=== PATIENT | female | born 1970 | race Caucasian/White ===

== ENCOUNTER 2016-07-11 01:10 | Emergency (ER) | payer OTHER ==
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
[2016-07-11] MEDS ORDERED: ONDANSETRON ODT 4 MG TAB (6 TAB/DSPK) PO PRN (04:46)
[2016-07-11 05:03] VITALS: BP 128/84
--- NOTE | 2016-07-11 16:03 | EKG REPORT ---
SEVERITY:- NORMAL ECG - SINUS RHYTHM : Confirmed by: Wendy Isabel 11-Jul-2016 16:02:56
== END 2016-07-11 05:03 | disposition home or self-care (01) ==
LOC: ER 01:10
DX: J20.9 Acute bronchitis, unspecified (principal); R05 Cough; R11.0 Nausea; R09.81 Nasal congestion; R07.9 Chest pain, unspecified; M54.9 Dorsalgia, unspecified; R51 Headache; R19.7 Diarrhea, unspecified; Z79.899 Other long term (current) drug therapy; F17.210 Nicotine dependence, cigarettes, uncomplicated
CPT/HCPCS: 71020; 93005; 93010; 99283

== ENCOUNTER 2017-08-06 20:12 | Emergency (ER) | payer OTHER ==
[2017-08-06 22:59] LABS: A TYPE INFLUENZA AG POSITIVE (NEGATIVE); B INFLUENZA AG NEGATIVE (NEGATIVE)
[2017-08-06] MEDS ORDERED: ACETAMINOPHEN 325 MG TABLET PO ONE (23:32)
[2017-08-06] MEDS ORDERED: IBUPROFEN 600 MG TABLET PO ONE (23:32)
[2017-08-06] MEDS ORDERED: BENZONATATE 100 MG CAPSULE PO ONE (23:32)
[2017-08-06] MEDS ORDERED: DEXAMETHASONE 4 MG TABLET PO ONE (23:32)
[2017-08-06] MEDS ORDERED: ONDANSETRON ODT 4 MG TAB (6 TAB/ER DISP) PO PRN (23:33)
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
[2017-08-07 00:23] VITALS: BP 132/80
== END 2017-08-07 00:20 | disposition home or self-care (01) ==
LOC: ER 20:12
DX: J11.1 Influenza due to unidentified influenza virus with other respiratory manifestations (principal); R11.0 Nausea; R19.7 Diarrhea, unspecified; Z88.6 Allergy status to analgesic agent; Z88.0 Allergy status to penicillin; F17.200 Nicotine dependence, unspecified, uncomplicated
CPT/HCPCS: 87804; 99283

== ENCOUNTER 2018-05-07 10:47 | Emergency (ER) | payer OTHER ==
[2018-05-07] MEDS ORDERED: KETOROLAC TROMETHAMINE INJ/PF 30 MG/1 ML SDV IV ONE (11:45)
[2018-05-07] MEDS ORDERED: ONDANSETRON HCL INJ/PF 4 MG/2 ML SDV IV ONE (11:45)
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
[2018-05-07 12:13] LABS: ABSOLUTE EOSINOPHILS # (AUTO) 0.2 10^3/uL (0.0-0.6); ABSOLUTE LYMPHOCYTES (AUTO) 3.2 10^3/uL (0.5-4.7); ABSOLUTE MONOCYTES (AUTO) 0.6 10^3/uL (0.1-1.4); ABSOLUTE NEUT (AUTO) 5.2 10^3/uL (1.7-8.2); BASOPHILS % (AUTO) 0.5 % (0-2); EOSINOPHILS % (AUTO) 2.5 % (0-6); HEMATOCRIT 44.3 % (36.0-47.0); LYMPHOCYTES % (AUTO) 34.7 % (13-45); MEAN CORPUSCULAR HEMOGLOBIN 34.5 pg (27.0-33.4); MEAN CORPUSCULAR HGB CONC 33.8 g/dL (32.0-36.0); MEAN CORPUSCULAR VOLUME 102 fl (80-97); MONOCYTES % (AUTO) 6.4 % (3-13); PLATELET COUNT 341 10^3/uL (150-450); RED BLOOD COUNT 4.34 10^6/uL (3.72-5.28); RED CELL DISTRIBUTION WIDTH 12.5 % (11.5-14.0); SEGMENTED NEUTROPHILS % (AUTO) 55.9 % (42-78); TOTAL CELLS COUNTED % (AUTO) 100 %; WHITE BLOOD COUNT 9.2 10^3/uL (4.0-10.5)
[2018-05-07 12:20] LABS: APPEARANCE,URINE CLEAR; BILIRUBIN,URINE NEGATIVE (NEGATIVE); COLOR,URINE STRAW; GLUCOSE, URINE NEGATIVE (NEGATIVE); KETONES,URINE NEGATIVE (NEGATIVE); LEUKOCYTE ESTERASE,URINE NEGATIVE (NEGATIVE); NITRITE,URINE NEGATIVE (NEGATIVE); PROTEIN,URINE NEGATIVE (NEGATIVE); URINE SPECIFIC GRAVITY 1.009; UROBILINOGEN,URINE NEGATIVE mg/dL (<2.0)
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
[2018-05-07 14:18] LABS: ALANINE AMINOTRANSFERASE 19 U/L (9-52); ALBUMIN 4.2 g/dL (3.5-5.0); ALKALINE PHOSPHATASE 77 U/L (38-126); ANION GAP 10 (5-19); ASPARTATE AMINO TRANSFERASE 17 U/L (14-36); BILIRUBIN,DIRECT 0.2 mg/dL (0.0-0.4); BILIRUBIN,TOTAL 0.9 mg/dL (0.2-1.3); BLOOD UREA NITROGEN 8 mg/dL (7-20); CALCIUM 9.8 mg/dL (8.4-10.2); CARBON DIOXIDE 25 mmol/L (22-30); CHLORIDE 106 mmol/L (98-107); GLUCOSE 92 mg/dL (75-110); LIPASE 50.9 U/L (23-300); TOTAL PROTEIN 6.8 g/dL (6.3-8.2)
[2018-05-07 15:01] VITALS: BP 126/72
== END 2018-05-07 15:00 | disposition left against medical advice (07) ==
LOC: ER 10:47
DX: R10.32 Left lower quadrant pain (principal); R11.0 Nausea; R20.2 Paresthesia of skin; R68.83 Chills (without fever); F17.200 Nicotine dependence, unspecified, uncomplicated; Z88.6 Allergy status to analgesic agent; Z88.8 Allergy status to other drugs, medicaments and biological substances; Z88.5 Allergy status to narcotic agent; Z88.0 Allergy status to penicillin; Z53.29 Procedure and treatment not carried out because of patient's decision for other reasons
CPT/HCPCS: 99284; 96374; 36415; 84702; 83690; 85025; 80053; 81001; J2405

== ENCOUNTER 2019-01-21 14:44 | Emergency (ER) | payer MEDICAID, OTHER ==
[2019-01-21] MEDS ORDERED: KETOROLAC TROMETHAMINE 60 MG/2 ML SDV IM ONE ×2 (15:15→16:42)
[2019-01-21] MEDS ORDERED: METHOCARBAMOL 500 MG TABLET PO ONE (15:15)
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
[2019-01-21] MEDS ORDERED: HYDROCODONE/ACETAMINOPHEN 5-325 MG TABLET PO ONE (16:42)
--- NOTE | 2019-01-21 16:43 | RADIOLOGY REPORT (SQ) ---
EXAM DESCRIPTION: L SPINE WHOLE COMPLETED DATE/TIME: 01/21/2019 4:31 pm REASON FOR STUDY: lower back pain, fell on buttocks COMPARISON: None. NUMBER OF VIEWS: Five views including obliques. TECHNIQUE: AP, lateral, oblique, and sacral radiographic images acquired of the lumbar spine. LIMITATIONS: None. FINDINGS: MINERALIZATION: Normal. SEGMENTATION: Normal. No transitional anatomy. ALIGNMENT: Normal. VERTEBRAE: Maintained height. No fracture or worrisome bone lesion. DISCS: Preserved height. No significant osteophytes or end plate irregularity. POSTERIOR ELEMENTS: Pedicles and facets are intact. No pars defect or posterior arch defects. Bilat eral facet arthropathy at L4-5 and L5-S1. HARDWARE: None in the spine. PARASPINAL SOFT TISSUES: Normal. PELVIS: Intact as visualized. No fractures or worrisome bone lesions. SI joints intact. OTHER: No other significant finding. IMPRESSION: Bilateral facet arthropathy at L4-5 and L5-S1 TECHNICAL DOCUMENTATION: JOB ID: [id number] [employer]- All Rights Reserved Reading location - IP/workstation name: [email or web address]
[2019-01-21] MEDS ORDERED: HYDROCODONE/ACETAMINOPHEN 5-325 MG (6 TAB/ER DISP) PO PRN (16:50)
[2019-01-21] MEDS ORDERED: ONDANSETRON 4 MG TAB.RAPDIS PO ONE (17:04)
[2019-01-21 17:24] VITALS: BP 138/77
== END 2019-01-21 18:10 | disposition home or self-care (01) ==
LOC: ER 14:44
DX: S39.012A Strain of muscle, fascia and tendon of lower back, initial encounter (principal); X58.XXXA Exposure to other specified factors, initial encounter; Z88.6 Allergy status to analgesic agent; Z88.0 Allergy status to penicillin
CPT/HCPCS: 99283; 96372; 72110; J1885; S0119; J3490

== ENCOUNTER 2020-06-28 20:49 | Emergency (ER) | payer SELFPAY ==
[2020-06-28] MEDS ORDERED: METOCLOPRAMIDE HCL ORAL SOLN 10 MG/10 ML UDCUP PO ONE (21:31)
[2020-06-28] MEDS ORDERED: LIDOCAINE 2% VISCOUS SOLN 15 ML UDCUP PO ONE (21:32)
[2020-06-28] MEDS ORDERED: MAG HYDROX/AL HYDROX/SIMETH SUSP 30 ML UDCUP PO ONE (21:32)
[2020-06-28] MEDS ORDERED: GLUCAGON,HUMAN RECOMB 1 MG INJ IV ONE (21:33)
[2020-06-28] MEDS ORDERED: DICYCLOMINE HCL INJ 20 MG/2 ML AMPULE IM ONE (21:34)
[2020-06-28] MEDS ORDERED: NORMAL SALINE 1000 ML 1,000 ML IV ONE (21:34)
--- NOTE | 2020-06-28 21:40 | ER Document Report ---
ED General - General Chief Complaint: Sore Throat Stated Complaint: ESOPHAGUS PAIN Time Seen by Provider: 06/28/20 21:24 Primary Care Provider: CIELO MACDONALD MD [ACTIVE STAFF] - Follow up as needed Mode of Arrival: Medic Information source: Patient Notes: 50-year-old female patient presented to the emergency department concern for epigastric pain. Patient reports pain started after she tried to swallow a piece of steak and she believes the steak is lodged in her esophagus. She states she has been able to swallow liquids since the time of the steak ingestion. She reports severe pain. She denies any history of similar episodes in the past. She also reports she has been having nausea for the last 1 to 2 days with several episodes of vomiting. Today she reports she had a few episodes of blood in her vomit, this was after the steak incident. TRAVEL OUTSIDE OF THE [place] IN LAST 30 DAYS: No - Related Data Allergies/Adverse Reactions: acetaminophen [From Percocet] Allergy (Verified 05/07/18 11:04) bupropion HCl [From Wellbutrin] Allergy (Verified 05/07/18 11:04) oxycodone [From Percocet] Allergy (Verified 05/07/18 11:04) Penicillins Allergy (Verified 05/07/18 11:04) Past Medical History - General Information source: Patient - Social History Smoking Status: Unknown if Ever Smoked Family History: Reviewed & Not Pertinent Renal/ Medical History: Denies: Hx Peritoneal Dialysis Musculoskeletal Medical History: Reports Hx Musculoskeletal Deformity, Reports Hx Musculoskeletal Trauma Psychiatric Medical History: Reports: Hx Anxiety, Hx Depression Past Surgical History: Reports: Hx Breast Surgery, Hx Gynecologic Surgery - leap, Hx Nose Surgery - Immunizations Hx Diphtheria, Pertussis, Tetanus Vaccination: Yes Review of Systems - Review of Systems Gastrointestinal: Abdominal pain, Nausea, Vomiting Physical Exam - Vital signs Vitals: Resp Pulse Ox 17 100 06/28/20 20:59 06/28/20 20:59 - Notes Notes: PHYSICAL EXAMINATION: GENERAL: Well-appearing, well-nourished and in moderate distress, rocking back and forth in the bed, intermittently dry heaving. HEAD: Atraumatic, normocephalic. EYES: Pupils equal round and reactive to light, extraocular movements intact, conjunctiva are normal. ENT: Nares patent, oropharynx clear without exudates. Moist mucous membranes. NECK: Normal range of motion, supple without lymphadenopathy LUNGS: Breath sounds clear to auscultation bilaterally and equal. No wheezes rales or rhonchi. HEART: Regular rate and rhythm without murmurs ABDOMEN: Soft, nondistended abdomen. Epigastric tenderness. No guarding, no rebound. No masses appreciated. Female : deferred Musculoskeletal: Normal range of motion, no pitting or edema. No cyanosis. NEUROLOGICAL: Cranial nerves grossly intact. Normal speech Normal sensory, motor exams PSYCH: Anxious, agitated. SKIN: Warm, Dry, normal turgor, no rashes or lesions noted. Course - Re-evaluation Re-evalutation: Patient has an elevated white count of 18,000, this is likely secondary to persistent vomiting as she does not have any fever, chills or any obvious source of infection. Unfortunately patient's care has been delayed today secondary to her lack of cooperation. A urine sample was sent down to the lab, the nurse informed me that the urine was cold and appeared to be very dilute. The lab confirmed this stating that is not able to be run as they do not believe it is urine. The patient has not had any further episodes of vomiting after receiving Haldol. She is resting peacefully. She does not appear to be in any acute distress. She has tolerated oral intake since her possible ingestion of steak. My plan at this point is to reevaluate the patient once the Haldol wears off. She does not appear to be in any acute distress. She can likely be discharged after she wakes up. I believe that she has some type of secondary gain with today's visit, she had a lot of specific questions on what type of medications we would be giving her, specifically asking for Dilaudid or Percocet for her pain. Upon review of her records she was prescribed Suboxone as recently as April, when she was questioned about this she states "that was to get me off of my pills" she then reports that she was taking hydrocodone. I do not believe the patient has any acute esophageal foreign body. Patient slept for approximately 6 hours with no vomiting. Immediately when we woke her up this morning she started grabbing her stomach stating that she was having pain. When I explained to patient that she has been sleeping comfortably all night without any vomiting without any pain she agreed to be discharged home with outpatient follow-up with gastroenterology. Strict ED return precautions were discussed. The patient's emergency department workup and current diagnosis were explained to the patient and or family. Follow-up instructions were provided. Medications if prescribed were discussed. Instructions for when to return to the emergency department including specific worrisome symptoms were discussed with the patient and/or family. - Vital Signs Vital signs: Temp Pulse Resp BP Pulse Ox 14 131/78 H 100 06/28/20 23:15 06/29/20 07:00 06/29/20 07:00 - Laboratory Results Result Diagrams: 06/28/20 22:57 06/28/20 22:57 Laboratory Results Interpreted: 06/28/20 06/28/20 06/28/20 22:57 22:57 22:57 WBC 18.0 H Lymph % (Auto) 8.8 L Absolute Neuts (auto) 15.6 H Seg Neutrophils % 86.7 H APTT 21.8 L Sodium 135.3 L BUN 6 L Glucose 134 H Total Protein 6.1 L Critical Laboratory Results Reviewed: No Critical Results - Radiology Results Critical Radiology Results Reviewed: No Critical Results Discharge - Discharge Clinical Impression: Esophagitis Gastritis Qualifiers: Gastritis type: unspecified gastritis Chronicity: acute Gastritis bleeding: with bleeding Qualified Code(s): K29.01 - Acute gastritis with bleeding Condition: Stable Disposition: HOME, SELF-CARE Instructions: Esophagitis ([facility]), Gastritis ([facility]), Gastroenterology Additional Instructions: Please call Dr. Macdonald's office this morning to schedule a follow-up appointment. Take medications as prescribed. Prescriptions: Sucralfate [Carafate 1 gm Tablet] 1 gm PO ACHS #60 tablet Famotidine [Pepcid 20 mg Tablet] 20 mg PO BID #12 tablet Ondansetron [Zofran Odt 4 mg Tablet] 1 - 2 tab PO Q4H PRN #15 tab.rapdis PRN Reason: For Nausea/Vomiting Referrals: CIELO MACDONALD MD [ACTIVE STAFF] - Follow up as needed
[2020-06-28] MEDS ORDERED: LORAZEPAM INJ 2 MG/1 ML VIAL IV ONE (22:12)
[2020-06-28] MEDS ORDERED: HALOPERIDOL LACTATE INJ 5 MG/1 ML VIAL IV ONE (22:20)
[2020-06-28 23:22] LABS: ABSOLUTE LYMPHOCYTES (AUTO) 1.6 10^3/uL (0.5-4.7); ABSOLUTE MONOCYTES (AUTO) 0.8 10^3/uL (0.1-1.4); ABSOLUTE NEUT (AUTO) 15.6 10^3/uL (1.7-8.2); BASOPHILS % (AUTO) 0.2 % (0-2); EOSINOPHILS % (AUTO) 0.1 % (0-6); HEMATOCRIT 38.3 % (36.0-47.0); HEMOGLOBIN 12.7 g/dL (12.0-15.5); LYMPHOCYTES % (AUTO) 8.8 % (13-45); MEAN CORPUSCULAR HEMOGLOBIN 32.2 pg (27.0-33.4); MEAN CORPUSCULAR HGB CONC 33.1 g/dL (32.0-36.0); MEAN CORPUSCULAR VOLUME 97 fl (80-97); MONOCYTES % (AUTO) 4.2 % (3-13); PLATELET COUNT 334 10^3/uL (150-450); RED BLOOD COUNT 3.95 10^6/uL (3.72-5.28); SEGMENTED NEUTROPHILS % (AUTO) 86.7 % (42-78); TOTAL CELLS COUNTED % (AUTO) 100 %
[2020-06-28 23:27] LABS: INTERNATIONAL RATION (INR) 0.97; PROTHROMBIN TIME 13.1 SEC (11.4-15.4)
[2020-06-28 23:28] LABS: PARTIAL THROMBOPLASTIN TIME 21.8 SEC (23.5-35.8)
[2020-06-28 23:53] LABS: ALBUMIN 3.5 g/dL (3.5-5.0); ALKALINE PHOSPHATASE 85 U/L (38-126); ANION GAP 6 (5-19); ASPARTATE AMINO TRANSFERASE 23 U/L (14-36); BILIRUBIN,TOTAL 0.5 mg/dL (0.2-1.3); BLOOD UREA NITROGEN 6 mg/dL (7-20); CALCIUM 9.1 mg/dL (8.4-10.2); CARBON DIOXIDE 23 mmol/L (22-30); CHLORIDE 106 mmol/L (98-107); GLUCOSE 134 mg/dL (75-110); POTASSIUM 3.7 mmol/L (3.6-5.0); TOTAL PROTEIN 6.1 g/dL (6.3-8.2)
[2020-06-28 23:54] LABS: ALCOHOL < 10 mg/dL (NONE DETECTED)
--- NOTE | 2020-06-29 03:29 | RADIOLOGY REPORT (SQ) ---
CLINICAL HISTORY: eval for FB COMPARISON: None. TECHNIQUE: XR CHEST 1 VIEW 06/29/2020 2:09 AM SCOW CAPTAIN FINDINGS: Cardiac silhouette is normal in size. Lungs are clear without consolidation, atelectasis, mass or edema. There is no pleural effusion. There is no pneumothorax. There are no acute osseous findings. IMPRESSION: No radiopaque foreign body.
[2020-06-29 07:08] VITALS: BP 131/78
[2020-06-29] MEDS ORDERED: DICYCLOMINE HCL INJ 20 MG/2 ML AMPULE IM ONE (07:22)
[2020-06-29] MEDS ORDERED: FAMOTIDINE INJ/PF 20 MG/2 ML SDV IV ONE (07:22)
[2020-06-29] MEDS ORDERED: SUCRALFATE 1 GM TABLET PO ONE (07:22)
== END 2020-06-29 07:39 | disposition home or self-care (01) ==
LOC: ER 20:49
DX: K29.01 Acute gastritis with bleeding (principal); K20.90 Esophagitis, unspecified without bleeding; R10.13 Epigastric pain; Z88.0 Allergy status to penicillin; Z88.6 Allergy status to analgesic agent
CPT/HCPCS: 99284; 96372; 96361; 96374; 96375; 86900; 86901; 36415; 86850; 80307; 85025; 85610; 85730; 80053; 71045; J0500 ×2; J1610; J1630; J3490; J2060; J7030; S0028

== ENCOUNTER 2020-08-02 08:08 | Emergency (ER) | payer SELFPAY ==
[2020-08-02 08:23] VITALS: BP 110/83
[2020-08-02] MEDS ORDERED: BUPIVACAINE HCL 0.5%-EPI 1:200000 INJ/PF 30 ML VIAL INJ ONE (09:16)
--- NOTE | 2020-08-02 09:29 | ER Document Report ---
ED General - General Chief Complaint: Toothache Stated Complaint: SWELLING OF THE FACE Time Seen by Provider: 08/02/20 09:00 Primary Care Provider: ROBERTO CRUZ MD [Primary Care Provider] - Follow up as needed Mode of Arrival: Ambulatory Information source: Patient TRAVEL OUTSIDE OF THE [place] IN LAST 30 DAYS: No - HPI Notes: Patient presents complaining of right lower posterior molar tooth pain. She states his pain started approximately 2 days ago. It is severe and constant. She has not been able to sleep. He has been taking some doxycycline for the infection that she had from a previous infection. The pain radiates up the right side of her face. It is sharp. She denies any fevers. - Related Data Allergies/Adverse Reactions: acetaminophen [From Percocet] Allergy (Verified 05/07/18 11:04) bupropion HCl [From Wellbutrin] Allergy (Verified 05/07/18 11:04) oxycodone [From Percocet] Allergy (Verified 05/07/18 11:04) Penicillins Allergy (Verified 05/07/18 11:04) Past Medical History - General Information source: Patient - Social History Smoking Status: Current Every Day Smoker Frequency of alcohol use: Occasional Drug Abuse: Marijuana Family History: Reviewed & Not Pertinent Renal/ Medical History: Denies: Hx Peritoneal Dialysis Musculoskeletal Medical History: Reports Hx Musculoskeletal Deformity, Reports Hx Musculoskeletal Trauma Psychiatric Medical History: Reports: Hx Anxiety, Hx Depression Past Surgical History: Reports: Hx Breast Surgery, Hx Gynecologic Surgery - leap, Hx Nose Surgery - Immunizations Hx Diphtheria, Pertussis, Tetanus Vaccination: Yes Review of Systems - Review of Systems Constitutional: denies: Chills, Fever Cardiovascular: denies: Chest pain, Palpitations Respiratory: denies: Cough, Short of breath -: Yes All other systems reviewed and negative Physical Exam - Vital signs Vitals: Temp Pulse Resp BP Pulse Ox 98.0 F 96 17 110/83 96 08/02/20 08:15 08/02/20 08:15 08/02/20 08:15 08/02/20 08:15 08/02/20 08:15 Interpretation: Normal - General General appearance: Appears well, Alert - HEENT Head: Normocephalic, Atraumatic Eyes: Normal Pupils: PERRL Mouth/Lips: Other - Patient has a decayed posterior lower right molar that is tender to tap. She has adjacent buccal swelling. No abscess. Mucous membranes: Moist Teeth diagram: 1 - area of decay/pain Pharynx: Normal - Respiratory Respiratory status: No respiratory distress Chest status: Nontender Breath sounds: Normal Chest palpation: Normal - Cardiovascular Rhythm: Regular Heart sounds: Normal auscultation Murmur: No - Abdominal Inspection: Normal Distension: No distension Bowel sounds: Normal Tenderness: Nontender Organomegaly: No organomegaly - Back Back: Normal, Nontender - Extremities General upper extremity: Normal inspection, Nontender, Normal color, Normal ROM, Normal temperature General lower extremity: Normal inspection, Nontender, Normal color, Normal ROM, Normal temperature, Normal weight bearing. No: Brie's sign - Neurological Neuro grossly intact: Yes Cognition: Normal Orientation: AAOx4 Melonie Coma Scale Eye Opening: Spontaneous Melonie Coma Scale Verbal: Oriented [place] Coma Scale Motor: Obeys Commands Melonie Coma Scale Total: 15 Speech: Normal Motor strength normal: LUE, RUE, LLE, RLE Sensory: Normal - Psychological Associated symptoms: Normal affect, Normal mood - Skin Skin Temperature: Warm Skin Moisture: Dry Skin Color: Normal Course - Re-evaluation Re-evalutation: 08/02/20 09:29 INF ABRAHAM Block I used 0.5% Marcaine with epinephrine. I did an inferior alveolar block on the right. I used approximately 5 cc of medication. Patient tolerated procedure well. There is no complications. - Vital Signs Vital signs: Temp Pulse Resp BP Pulse Ox 98.0 F 96 17 110/83 96 08/02/20 08:15 08/02/20 08:15 08/02/20 08:15 08/02/20 08:15 08/02/20 08:15 - Laboratory Results Critical Laboratory Results Reviewed: No Critical Results - Radiology Results Critical Radiology Results Reviewed: No Critical Results Discharge - Discharge Clinical Impression: Tooth infection Condition: Stable Disposition: HOME, SELF-CARE Instructions: [facility], Oral Narcotic Medication ([facility]), Toothache ([facility]) Additional Instructions: It is very important that you see a dentist as soon as possible. Prescriptions: Hydrocodone/Acetaminophen [[place] 10-325 mg Tablet] 1 tab PO Q6 PRN 3 Days #12 tablet PRN Reason: For Pain Doxycycline Hyclate [Vibramycin 100 mg Tablet] 100 mg PO BID 10 Days #20 tablet Forms: Return to Work Referrals: ROBERTO CRUZ MD [Primary Care Provider] - Follow up as needed
== END 2020-08-02 09:42 | disposition home or self-care (01) ==
LOC: ER 08:08
DX: K04.7 Periapical abscess without sinus (principal); K02.9 Dental caries, unspecified; K08.89 Other specified disorders of teeth and supporting structures; F17.200 Nicotine dependence, unspecified, uncomplicated; F12.10 Cannabis abuse, uncomplicated; Z88.8 Allergy status to other drugs, medicaments and biological substances; Z88.6 Allergy status to analgesic agent; Z88.5 Allergy status to narcotic agent; Z88.0 Allergy status to penicillin
CPT/HCPCS: 99284; 64400; J3490